=== PATIENT | male | born 1950 | race Caucasian/White ===

== ENCOUNTER → 2023-06-05 12:34 | Outpatient (CLI) | payer OTHER, SELFPAY ==
--- NOTE | 2023-06-05 12:38 | DI.ECHO.S_ITS ---
[facility]---------+ [facility] +---------+ : : [address] : : : : [id number] : : : : Phone: [phone]---------+ Echocardiogram Report + + :Name: POPPY CASTANON Study Date: 06/05/2023 Height: 70 in : :[facility] ReadingLocation: Weight: 177 lb : : Gender: Male BSA: 2.0 m2 : :: 1950 Age: 73 yrs BP: 138/93 mmHg: :Reason For Study: ATHEROSCLEROTIC HEART DISEASE : :Ordering Physician: MONTSE, : :JOSE Performed By: Viviana Arambula : :Referring: JOSE WILLARD : + + Interpretation Summary The left ventricle is normal in size and wall thickness. The left ventricular ejection fraction is normal. The ejection fraction is estimated to be 60-65%. The right ventricle is normal in size and function. There is mild aortic regurgitation . The IVC is of normal diameter and collapses greater than 50% with a sniff. This suggests a low right atrial pressure of 3 mm Hg. Mild atherosclerotic plaque(s) in the aortic arch. Procedure: A two-dimensional transthoracic echocardiogram with color flow and Doppler was performed. The study quality was technically adequate. There is no prior echocardiogram noted for this patient. The patient was in sinus rhythm with heart rates between 58-65 bpm during the exam. Left Ventricle: The left ventricle is normal in size and wall thickness. There is no thrombus. The ejection fraction is estimated to be 60-65%. The left ventricular ejection fraction is normal. There are no focal wall motion abnormalities. Diastolic parameters suggest a relaxation abnormality of the left ventricle, consistent with probable normal filling pressures. Right Ventricle: The right ventricle is normal in size and function. Atria: The left atrial size is normal. Right atrial size is normal. There is no Doppler evidence for an interatrial shunt. Mitral Valve: There is mild mitral annular calcification. There is trace mitral regurgitation. Aortic Valve: The aortic valve is not well visualized. The aortic valve opens well. There is no aortic valve stenosis. There is mild aortic regurgitation. Tricuspid Valve: The tricuspid valve is normal in structure and function. There is trace tricuspid regurgitation. The right ventricular systolic pressure is estimated to be at least 26.4 mmHg based on an estimated right atrial pressure of 3 mm Hg. Pulmonic Valve: The pulmonic valve is not well visualized. There is no pulmonic valvular regurgitation. Great Vessels: The aortic root is normal size. The dimensions of the ascending aorta are normal. Mild atherosclerotic plaque(s) in the aortic arch. The IVC is of normal diameter and collapses greater than 50% with a sniff. This suggests a low right atrial pressure of 3 mm Hg. Pericardium/ Pleura There is no pericardial effusion. There is no pleural effusion. MMode/2D Measurements & Calculations LVIDd: 4.6 cm LVOT diam: 2.2 cm LVIDs: 3.4 cm Ao root diam: 3.3 cm FS: 26.2 % Ao Arch Diam (Prox Trans): 2.5 cm IVSd: 0.79 cm LVPWd: 0.97 cm LV paul. diameter/BSA (cm/m^2): 2.3 LV sys. diameter/BSA (cm/m^2): 1.7 LA A2 area: 17.2 cm2 RA long axis: 4.7 cm LA A4 area: 13.2 cm2 RA area: 12.0 cm2 LA length (vol): 4.3 cm RA vol: 26.0 ml LA vol: 45.2 ml RA : 13.1 ml/m2 LA vol index: 22.8 ml/m2 IVC diam: 1.8 cm RVD1 (basal): 3.9 cm TAPSE: 2.0 cm Doppler Measurements & Calculations Ao V2 max: 128.8 cm/sec LVOT Max Maico: 115.1 cm/sec Ao V2 mean: 94.1 cm/sec LV V1 max P.3 mmHg Ao max P.6 mmHg LV V1 VTI: 20.9 cm Ao mean P.9 mmHg ROGELIO(I,D): 3.0 cm2 Ao V2 VTI: 27.6 cm ROGELIO(V,D): 3.5 cm2 sev ratio: 0.76 ROGELIO indexed to BSA (cm^2/m^2): 1.5 MV E max maico: 58.5 cm/sec TR max maico: 241.6 cm/sec MV A max maico: 86.7 cm/sec TR max P.4 mmHg MV E/A: 0.67 PA pr(Accel): 20.8 mmHg Med Peak E' Maico: 6.8 cm/sec E/E' med: 8.6 Lat Peak E' Maico: 8.1 cm/sec E/E' lat: 7.2 E/e' average: 7.9 MV dec time: 0.21 sec SV(LVOT): 82.4 ml Reading Physician:10:39 AM
== END ==
PROVIDERS: Referring Provider Orthopaedic Surgery; Visit Provider Orthopaedic Surgery
DX: I25.10 Atherosclerotic heart disease of native coronary artery without angina pectoris (principal); I34.81 Nonrheumatic mitral (valve) annulus calcification; I35.1 Nonrheumatic aortic (valve) insufficiency; I70.0 Atherosclerosis of aorta
CPT/HCPCS: 93306